=== PATIENT | male | born 1945 | race Caucasian/White ===

== ENCOUNTER 2016-06-08 11:02 | Inpatient (IN) | payer MEDICARE, BC ==
--- NOTE | ~2016-06-08 | OP ---
[facility] [address] [place]. [address] NAME: CHARLOTTE MONTGOMERY : 41 STATUS : DIS IN PAT#: [id number] AGE: 70 ADM/REG DATE : 06/09/16 MR#: [id number] REPORT SERV DATE: 06/14/16 DICTATED BY: LEIF FUNES DATE: 06/14/16 REPORT STATUS : Draft TRANSCRIBED BY: MODL DATE: 06/14/16 DATE OF PROCEDURE: 06/12/2016 PREOPERATIVE DIAGNOSES: 1. 5.5 cm abdominal aortic aneurysm. 2. Chronic kidney disease. 3. Congestive heart failure. POSTOPERATIVE DIAGNOSES: 1. 5.5 cm abdominal aortic aneurysm. 2. Chronic kidney disease. 3. Congestive heart failure. PROCEDURE: 1. Ultrasound-guided percutaneous access of bilateral common femoral arteries. 2. Abdominal aortogram. 3. Coil embolization of left internal iliac artery. 4. Endovascular abdominal aortic aneurysm repair (Medtronic Endurant 28 x 16 x 166 main body device from the right and 16 x 10 x 156 left iliac limb). SURGEON: Leif Funes M.D. TELE TECH: Sincere. ANESTHESIA: General endotracheal. ESTIMATED BLOOD LOSS: 50 mL. CONTRAST: 37 mL. COMPLICATIONS: None. INDICATIONS: Mr. Montgomery is a pleasant 70-year-old man with the above-listed comorbidities. He has a newly diagnosed abdominal aortic aneurysm. He is recommended for endovascular repair. On preoperative imaging, it was felt we would need to cover the left internal iliac artery to achieve aneurysm exclusion. Therefore, he is recommended for concomitant embolization of internal iliac origin. DETAILS OF PROCEDURE: After informed consent was obtained, the patient was brought to the endovascular suite and placed in supine position. After administration of anesthesia, he was intubated. He was prepped and draped in usual sterile fashion. A time-out was performed. I commenced the procedure with ultrasound-guided percutaneous access of the right common femoral artery. A permanent image of the artery documenting patency was saved and stored in the patient's chart. I accessed with a micropuncture needle and passed a micropuncture wire confirmed intra-arterial under fluoroscopy. We systemically heparinized. I then placed a Bentson wire. I then pre-dilated with a 6-Kyrgyz sheath. I made an [facility] [place] [address] [facility] [place]. [address] NAME: CHARLOTTE MONTGOMERY : 41 STATUS : DIS IN PAT#: [id number] AGE: 70 ADM/REG DATE : 06/09/16 MR#: [id number] REPORT SERV DATE: 06/14/16 DICTATED BY: LEIF FUNES DATE: 06/14/16 REPORT STATUS : Draft TRANSCRIBED BY: TOMASA DATE: 06/14/16 incision overlying the puncture site down to the common femoral artery. I then placed two ProGlide closure devices in the Preclose technique. Same procedure was undertaken in the left common femoral artery. Again the Bentson wire was placed in two ProGlide closure devices deployed in the Preclose technique after incision was made overlying the access site down to the common femoral artery. After that, 11-Kyrgyz sheaths were placed bilaterally. After that, I used a Hurdland flush catheter and a Glidewire to select from the right femoral access over to the left internal iliac artery. I advanced the wire and a jas 2 in the left internal iliac artery. We then embolized the left internal iliac artery origin without difficulty. After that, we pulled back in to the right common iliac artery. I advanced the wire back into the aorta. I exchanged for an Amplatz wire on the right. I advanced a Medtronic Endurant 28 x 16 x 166 main body device from the right over the Amplatz wire. Hurdland flush catheter was advanced from the left. We performed magnified views of the proximal aorta demonstrating the renal arteries. Aneurysm is visualized. We then deployed the main body device just below the lowest renal artery which is on the left. We deployed down to the contralateral gate. We then released the suprarenal fixation. After that, we advanced a Marker flush catheter from the left. Contrast injection was performed through the left femoral sheath. Based on this measurements, we selected a 16 x 10 x 156 left iliac limb, this was deployed without difficulty, just beyond the left internal iliac artery origin. We then completed the delivery of the main body on the right. Delivery systems were removed. Sheaths were replaced. We used a Reliant balloon to balloon the proximal and distal fixation sites as well as stent overlap sites. Repeat aortogram showed perfect positioning of the aortic stent graft with no impingement of flow in the bilateral renal arteries to the right internal iliac artery. Left internal iliac artery successfully embolized. There is no significant endoleak. Wires and catheters removed. Each access site was closed successfully with a ProGlide closure device in a Preclose technique. The incisions were closed with 4-0 Monocryl and Dermabond. The patient tolerated the procedure well without complications. I was present and participated in entire case as dictated. NANCY/TOMASA Leif Funes M.D. / [id number] CC: Yudith López CHARLES E JR
--- NOTE | ~2016-06-08 | DS ---
Discharge Summary [facility] [address] [place]. [address] NAME: CHARLOTTE CUNHA : 41 STATUS : DIS IN PAT#: [id number] AGE: 70 ADM/REG DATE : 06/09/16 MR#: [id number] REPORT SERV DATE: 06/20/16 DICTATED BY: KALLIE WORRELL DATE: 06/19/16 REPORT STATUS : Draft TRANSCRIBED BY: TOMASA DATE: 06/19/16 Data Collection from hospitalization DISCHARGE DIAGNOSES: 1. Ventricular tachycardia status post ICD at PRERNA. 2. Coronary artery disease. 3. Ischemic cardiomyopathy. 4. Hyperlipidemia. 5. Chronic kidney disease. 6. Former tobacco use. CONSULTATIONS: Dr. Lester Hightower. Dr. Mil Funes. PROCEDURES: 1. COUNTER CUTTER-D generator explantation with risk implantation of COUNTER CUTTER-D, 06/08/2016. 2. Ultrasound-guided percutaneous access of bilateral common femoral arteries, abdominal aortogram, coil embolization of left internal iliac artery, endovascular abdominal aortic aneurysm repair (Medtronic Endurant 28 x 16 x 166 main body device from the right and 16 x 10 x 156 left iliac limb), 06/12/2016. 3. Duplex renal arterial venous study, 06/08/2016. 4. CT scan of the abdomen and pelvis without contrast on 06/09/2016. DISCHARGE MEDICATIONS: Aspirin 81 mg daily, Lipitor as instructed, Coreg 6.25 mg twice a day, Lasix 40 mg daily, multivitamins with minerals one tablet daily, hydrocodone 5/325 one to two tablets every four hours as needed for pain. CONDITION ON DISCHARGE: Stable. DISPOSITION: The patient was discharged home on a low-sodium, low-cholesterol, cardiac diet with activities as instructed. He would follow up with Brittnee Frank, 07/12/2016. He would follow up with PRIMING MACHINE OPERATOR, Carlene Valencia, 06/27/2016. He would follow up with Dr. Kallie Worrell two weeks following discharge. He would follow up with me as instructed. HOSPITAL COURSE: This is a 70-year-old man, who had reached PRERNA on his generator. He has underlying ischemic cardiomyopathy with biventricular ICD support. He had reached PRERNA on the generator and we made plans to replace the generator. He had also developed worsening renal function. We would check renal artery Dopplers to evaluate him for any obstruction. He was admitted to the hospital at this time for further evaluation and treatment. Upon admission, he underwent successful ICD replacement. He tolerated this well and there were no complication. Renal color flow study and vascular ultrasound of the kidneys were performed. There was no evidence of renal artery stenosis; however, there was distal aortic aneurysm detected. On 06/09/2016, the patient was seen by Dr. Mil Funes, regarding the newly diagnosed abdominal aortic aneurysm. Creatinine level was 2.3. A CT scan of the abdomen and pelvis without contrast showed a 5.3 cm inferior abdominal aortic aneurysm. There was a small volume of ascites. It was suspected that the intraperitoneal catheter or wire was below the hepatic tip. Creatinine level was 2.39. Dobutrex was started. On 06/10/2016, he had no new complaints. He had no focal deficits. He had no edema. Discharge Summary [address] [address] NAME: CHARLOTTE CUNHA : 41 STATUS : DIS IN PAT#: [id number] AGE: 70 ADM/REG DATE : 06/09/16 MR#: [id number] REPORT SERV DATE: 06/20/16 DICTATED BY: KALLIE WORRELL DATE: 06/19/16 REPORT STATUS : Draft TRANSCRIBED BY: MODLigia DATE: 06/19/16 Creatinine level was 2.20. Dobutrex was continued. His chronic renal insufficiency was felt due to ischemic cardiomyopathy and Entresto use. It was felt that the patient would need to undergo EVAR. The patient was seen by Dr. Lester Hightower. The patient was noted to have a decreased ejection fraction and worsening renal insufficiency. The patient was advised of his risk for sustaining an acute kidney injury on chronic kidney disease in light of his planned surgical intervention. Void residual was going to be checked and a Brown catheter would be placed if needed. We would avoid KAT inhibitors as well as ARBs, which the patient was currently not on. He was recently on Entresto, which may have certainly worsened his renal dysfunction as he had shown some improvement across May on his baseline creatinine. The patient said that on January 2016, he was around 1.9 and our hopes were that we could return him to near that previous 1.9 to 2.0 baseline. Urine studies: Urine creatinine, urine sodium, urine urea, and urinalysis would be obtained. We would not modify diuretic pattern as the patient has severely reduced ejection fraction with implementation of his device, which may improve perfusion and hopefully provide some assistance in improving his renal dysfunction. Postvoid residual was 100 mL via bladder scan. On 06/11/2016, he had trace left basilar rales. Creatinine level was 1.92. Plans were being made to proceed with surgical intervention the next day. The patient said he was not interested in hemodialysis. Lasix was going to be continued. He was taken to the endovascular suite, where he underwent the above-mentioned procedure by Dr. Mil uFnes. He tolerated this well and there were no complications. He also underwent hematoma pocket evacuation. Discharge planning was performed. He had some mild pain at the pacemaker site. On 06/13/2016, IV fluids and Brown catheter were discontinued. Lasix has been resumed. He had stable renal function. Dobutrex was discontinued. He was alert and cooperative. He had no edema. Creatinine level was 1.65. Discharge instructions were given. Due to his improved and stable condition, he was discharged home with the above-stated instructions. Information collected by: Bhumi Kennedy I submit the above information as my discharge summary. TG/MODL Kallie Worrell M.D. / [id number] CC: Yudith López CHARLES E JR Mark W Fugate, M.D. Hans E Yehnert, MD
--- NOTE | ~2016-06-08 | CN ---
Consultation Report [facility] [address] [place]. [address] NAME: CHARLOTTE CUNHA : 41 STATUS : ADM IN PAT#: [id number] AGE: 70 ADM/REG DATE : 06/09/16 MR#: [id number] REPORT SERV DATE: 06/10/16 DICTATED BY: SARA POWELL DATE: 06/10/16 REPORT STATUS : Draft TRANSCRIBED BY: MODL DATE: 06/10/16 CONSULTATION DATE OF CONSULTATION: 06/10/2016 HISTORY OF PRESENT ILLNESS: This is a fairly pleasant 70-year-old male patient, who underwent recent follow up with his clipper machine. He was noted to have a decreased ejection fraction and worsening renal insufficiency. He was placed inpatient at [facility]. He was admitted in favor of placement of a pacemaker and further supportive workup. He has recently been on Entresto and states that his creatinine was noted to be at approximately 1.9 by his recollection in around January of this year. At some point, he was advised to remove the medication and had self-removed prior to that. By his recall, his creatinine peak had been at approximately 2.49. He has had a long cardiac history and has required previous interventions, including a valve replacement and ablation and is known to have an ejection fraction around 15%. He is awake and alert this afternoon. His daughters are at bedside during evaluation and participate fully in HPI as well as medical history. We are asked for consultation as this patient has had an incidental finding of an aortic aneurysm and will undergo surgical repair on Sunday and shows a creatinine at 2.22. PAST MEDICAL HISTORY: Positive for coronary artery disease; chronic left bundle-branch block; ischemic cardiomyopathy with kade ejection fraction at 15%; status post upgrade of biventricular ICD on 07/24/2010, [employer] Consult[employer] SUPERVISOR ADVERTISING [employer] CLERKS-D by Dr. Worrell; hyperlipidemia; possible aortic stenosis identified in last [facility] note with recent valvular area of 1.1 sq cm, status post AVR; ventricular tachycardia, status post ablation 2015; history of CABG; history of aortic valve replacement; hyperlipidemia; and some level of chronic kidney disease with last available creatinine here prior to this admission in 2011, identifying creatinine at 1.68 with the patient stating his most recent creatinine in January of this previous calender year while hospitalized inpatient. REVIEW OF SYSTEMS: Completed, please see HPI for pertinent details. ALLERGIES: HE LISTS ALLERGIES TO SPIRONOLACTONE. ACTIVE MEDICATIONS: ASA 81 mg daily, Coreg 6.25 mg p.o. b.i.d., Lasix 40 mg daily, multivitamin one tab p.o. daily. SOCIAL HISTORY: No ETOH. No illicit drugs. No tobacco. He has quit smoking approximately 20 years ago, however, was quite an aggressive smoker prior, smoking approximately two packs a day since age 13 according to his recall. PHYSICAL EXAMINATION: VITAL SIGNS: Blood pressure is 103/63, temperature at 97.5, respiratory rate is 16, heart rate is 65 beats per minute and regular. Consultation Report [address] [place]. [address] NAME: CHARLOTTE CUNHA : 41 STATUS : ADM IN PAT#: [id number] AGE: 70 ADM/REG DATE : 06/09/16 MR#: [id number] REPORT SERV DATE: 06/10/16 DICTATED BY: SARA POWELL DATE: 06/10/16 REPORT STATUS : Draft TRANSCRIBED BY: TOMASA DATE: 06/10/16 GENERAL: He is awake, alert and oriented x3, in no acute distress. He is status post pacemaker and has a bandage to his left shoulder area. HEENT: Normocephalic and atraumatic. Normal ocular movements. No scleral icterus or conjunctival pallor is appreciated. NECK: Supple without thyromegaly. No JVD. No mass. CHEST: Shows positive S1 and S2 with a paced rhythm. No rubs. No gallops. LUNGS: Diminished, but essentially clear to auscultation throughout with normal expansion and effort bilaterally. GI: Shows positive bowel sounds in all four quadrants. No appreciable mass. No tenderness. EXTREMITIES: Show positive pulses. No clubbing, cyanosis, or edema. NEUROLOGIC: He appears to be grossly intact and nonfocal. SKIN: Warm, dry, and intact to visualized surfaces. No rash, lesions, or ecchymosis. DATA: Pertinent laboratories and imaging to this evaluation: Most recent electrolyte profile: Sodium 141, potassium 3.9, chloride 108, CO2 of 22, BUN 38, creatinine 2.22, reflected GFR 29 mL/minute, glucose of 142, calcium 8.6. CBC: White blood cell count of 5.6, RBC 3.83, hemoglobin 11.9, hematocrit 36.4, platelets at 90. CT of the abdomen and pelvis without contrast identifies a 5.3 cm inferior abdominal aortic aneurysm with small volume of ascites, suspect intraperitoneal catheter or wire below hepatic . Bladder wall is distended, measuring 12.7 x 7.4 x 10.3 with an approximate value of 480 mL. Prostate and seminal vesicles are prominent. No mass or pelvic adenopathy is found. Extensive calcification of the abdominal aorta with large aneurysm as listed above. Gallbladder fossa, the liver, spleen, pancreas, adrenal glands, and kidneys are normal based off this noncontrasted examination. Renal ultrasound completed on 06/09, no evidence of renal artery stenosis; however, distal aortic aneurysm is noted, measuring on that examination at 5.0 x 5.4. IMPRESSION AND PLAN: Likely chronic kidney disease stage 3, baseline creatinine somewhere around 2.0 simi with previous creatinine in 2011 noted at 1.68 in 07/2011, on evaluation here on 05/26 at 2.49, then on 05/31 at 2.47, de-escalating 2.20, and now at 2.2 with no evidence of renal artery stenosis on evaluation and possible urinary retention with noted aortic aneurysm with surgical repair planned on Sunday. The patient is advised of his risk for sustaining an acute kidney injury on chronic kidney disease in light of planned surgical intervention. He and his family understand the risk and are allowed to ask questions and are fully informed during this evaluation. They will continue to discuss planned surgical intervention and further discuss the actual intervention itself with Vascular Services if they have further questions. For now, given his shown bladder volume on his imaging, we will check postvoid residual and place Brown catheter if needed. Avoid KAT inhibitors as well as ARBs, which the patient is currently not on. He was recently on Entresto, which may have certainly worsened his renal dysfunction as he has shown some improvement across May on his baseline creatinine. The patient states that in 01/2016, he was around 1.9, and our hopes are that we can return him to near that previous 1.9 to 2.0 baseline. We will also check urine studies, urine creatinine, urine sodium, urine urea, urinalysis and place on strict I's and O's. We will not modify diuretic pattern as the Consultation Report [place] [id number] [place]. [id number] NAME: CHARLOTTE CUNHA : 41 STATUS : ADM IN PAT#: [id number] AGE: 70 ADM/REG DATE : 06/09/16 MR#: [id number] REPORT SERV DATE: 06/10/16 DICTATED BY: SARA POWELL DATE: 06/10/16 REPORT STATUS : Draft TRANSCRIBED BY: MODL DATE: 06/10/16 patient has a severely reduced ejection fraction with implementation of his device as above may improve perfusion and hopefully provide some assistance in improving his renal dysfunction. Further modification of treatment plan may be made based on clinical presentation of the patient, laboratory results, and further consultation with Renal attending. We appreciate consultation, we are glad to follow. DICTATED BY: Brijesh Medeiros NP JR/TOMASA Sara Powell MD / [id number] CC: Yudith López Charles E Jr
[~2016-06-08 11:02] MED LIST: ASAB PO; CALTRA600D PO; COREG6 PO; GLUCCHONDR PO; L40 PO; LAN125 PO; MULTIVIT/MIN PO; PRIN20 PO; ZOCOR20 PO
[2016-06-08 11:48] LABS: BASOPHILS 0.4 %; BASOPHILS ABSOLUTE 0.02 10/3/uL (0.0-0.16); EOSINOPHILS 4.6 %; EOSINOPHILS ABSOLUTE 0.22 10/3/uL (0.0-0.53); HEMATOCRIT 36.6 % (40.0-51.0); HEMOGLOBIN 11.5 g/dL (13.6-17.8); IMMATURE GRANULOCYTES 0.2 %; IMMATURE GRANULOCYTES ABSOLUTE 0.01 10/3/uL (0.0-0.11); LYMPHOCYTES 20.7 %; MEAN CORPUS HGB CONC 31.4 g/dL (32.0-36.0); MEAN CORPUSCULAR HEMOGLOB 29.4 pg (26.0-34.0); MEAN CORPUSCULAR VOLUME 93.6 fL (80-100); MEAN PLATELET VOLUME 10.9 fL (9.2-13.0); MONOCYTES 11.8 %; MONOCYTES ABSOLUTE 0.57 10/3/uL (0.21-1.20); NEUTROPHILS 62.3 %; NEUTROPHILS ABSOLUTE 3.01 10/3/uL (2.02-8.40); PLATELET COUNT 107 10/3/uL (150-400); RBC DISTRIBUTION WIDTH 15.8 % (12.0-16.0); RED CELL COUNT 3.91 10/6/uL (4.7-6.1); WHITE BLOOD CELLS 4.8 10/3/uL (4.5-10.5)
[2016-06-08 11:50] LABS: MANUAL DIFF NO %
[2016-06-08 12:02] LABS: CALCIUM, SERUM 9.2 MG/DL (8.5-10.4); CHLORIDE, SERUM 107 MMOL/L (96-112); CO2 (CARBON DIOXIDE) 26 MMOL/L (24-34); CREATININE 2.39 MG/DL (0.70-1.30); GFR AFRICAN AMERICAN 30 ML/MIN (>=60); GFR NON AFRICAN AMERICAN 26 ML/MIN (>=60); GLUCOSE, SERUM 118 MG/DL (60-99); POTASSIUM, SERUM 4.3 MMOL/L (3.5-5.3); SODIUM, SERUM 143 MMOL/L (135-148)
[2016-06-08 12:03] LABS: BUN (BLOOD UREA NITROGEN) 41 MG/DL (6-23)
[2016-06-09 12:01] LABS: CALCIUM, SERUM 8.8 MG/DL (8.5-10.4); CHLORIDE, SERUM 107 MMOL/L (96-112); CO2 (CARBON DIOXIDE) 23 MMOL/L (24-34); GFR AFRICAN AMERICAN 33 ML/MIN (>=60); GFR NON AFRICAN AMERICAN 29 ML/MIN (>=60); GLUCOSE, SERUM 96 MG/DL (60-99); POTASSIUM, SERUM 4.3 MMOL/L (3.5-5.3); SODIUM, SERUM 142 MMOL/L (135-148)
[2016-06-09 12:02] LABS: BUN (BLOOD UREA NITROGEN) 37 MG/DL (6-23)
[2016-06-10 08:13] LABS: BASOPHILS 0.2 %; BASOPHILS ABSOLUTE 0.01 10/3/uL (0.0-0.16); EOSINOPHILS ABSOLUTE 0.17 10/3/uL (0.0-0.53); HEMATOCRIT 36.4 % (40.0-51.0); HEMOGLOBIN 11.9 g/dL (13.6-17.8); IMMATURE GRANULOCYTES 0.2 %; IMMATURE GRANULOCYTES ABSOLUTE 0.01 10/3/uL (0.0-0.11); LYMPHOCYTES 16.5 %; LYMPHOCYTES ABSOLUTE 0.92 10/3/uL (0.67-4.30); MEAN CORPUS HGB CONC 32.7 g/dL (32.0-36.0); MEAN CORPUSCULAR HEMOGLOB 31.1 pg (26.0-34.0); MEAN PLATELET VOLUME 11.7 fL (9.2-13.0); MONOCYTES 11.6 %; MONOCYTES ABSOLUTE 0.65 10/3/uL (0.21-1.20); NEUTROPHILS 68.5 %; NEUTROPHILS ABSOLUTE 3.82 10/3/uL (2.02-8.40); PLATELET COUNT 90 10/3/uL (150-400); RBC DISTRIBUTION WIDTH 15.6 % (12.0-16.0); RED CELL COUNT 3.83 10/6/uL (4.7-6.1); WHITE BLOOD CELLS 5.6 10/3/uL (4.5-10.5)
[2016-06-10 08:17] LABS: MANUAL DIFF NO %
[2016-06-10 08:28] LABS: BUN (BLOOD UREA NITROGEN) 38 MG/DL (6-23); CALCIUM, SERUM 8.6 MG/DL (8.5-10.4); CHLORIDE, SERUM 108 MMOL/L (96-112); CO2 (CARBON DIOXIDE) 22 MMOL/L (24-34); CREATININE 2.22 MG/DL (0.70-1.30); GFR AFRICAN AMERICAN 33 ML/MIN (>=60); GFR NON AFRICAN AMERICAN 29 ML/MIN (>=60); POTASSIUM, SERUM 3.9 MMOL/L (3.5-5.3); SODIUM, SERUM 141 MMOL/L (135-148)
[2016-06-10 08:29] LABS: GLUCOSE, SERUM 142 MG/DL (60-99)
[2016-06-10 22:11] LABS: ASCORBIC ACID (UR NOT ORDER) NEG (NEG); BILIRUBIN, URINE NEGATIVE (NEG); KETONE, URINE NEGATIVE (NEG); LEUKOCYTE ESTERASE(NOT OR NEG (NEG); WBC (NOT ORDERED) (RFLEX) < 1 (0-5)
[2016-06-10 22:44] LABS: CREATININE, URINE 63.1 MG/DL
[2016-06-11 07:16] LABS: BASOPHILS 0.4 %; BASOPHILS ABSOLUTE 0.02 10/3/uL (0.0-0.16); EOSINOPHILS 4.9 %; EOSINOPHILS ABSOLUTE 0.26 10/3/uL (0.0-0.53); HEMATOCRIT 34.7 % (40.0-51.0); HEMOGLOBIN 11.2 g/dL (13.6-17.8); IMMATURE GRANULOCYTES 0.2 %; IMMATURE GRANULOCYTES ABSOLUTE 0.01 10/3/uL (0.0-0.11); LYMPHOCYTES 17.1 %; LYMPHOCYTES ABSOLUTE 0.91 10/3/uL (0.67-4.30); MEAN CORPUS HGB CONC 32.3 g/dL (32.0-36.0); MEAN CORPUSCULAR HEMOGLOB 30.6 pg (26.0-34.0); MEAN CORPUSCULAR VOLUME 94.8 fL (80-100); MEAN PLATELET VOLUME 10.7 fL (9.2-13.0); MONOCYTES 14.9 %; MONOCYTES ABSOLUTE 0.79 10/3/uL (0.21-1.20); NEUTROPHILS 62.5 %; NEUTROPHILS ABSOLUTE 3.32 10/3/uL (2.02-8.40); PLATELET COUNT 87 10/3/uL (150-400); RBC DISTRIBUTION WIDTH 15.7 % (12.0-16.0); RED CELL COUNT 3.66 10/6/uL (4.7-6.1); WHITE BLOOD CELLS 5.3 10/3/uL (4.5-10.5)
[2016-06-11 07:17] LABS: MANUAL DIFF NO %
[2016-06-11 07:31] LABS: ALBUMIN 3.4 G/DL (3.5-5.0); BUN (BLOOD UREA NITROGEN) 36 MG/DL (6-23); CALCIUM, SERUM 8.4 MG/DL (8.5-10.4); CHLORIDE, SERUM 107 MMOL/L (96-112); CO2 (CARBON DIOXIDE) 22 MMOL/L (24-34); CREATININE 1.92 MG/DL (0.70-1.30); GFR AFRICAN AMERICAN 39 ML/MIN (>=60); GFR NON AFRICAN AMERICAN 34 ML/MIN (>=60); GLUCOSE, SERUM 163 MG/DL (60-99); PHOSPHORUS, SERUM 3.3 MG/DL (2.5-4.5); POTASSIUM, SERUM 3.8 MMOL/L (3.5-5.3); SODIUM, SERUM 141 MMOL/L (135-148)
[2016-06-12 06:33] LABS: ALBUMIN 3.5 G/DL (3.5-5.0); BUN (BLOOD UREA NITROGEN) 37 MG/DL (6-23); CALCIUM, SERUM 8.5 MG/DL (8.5-10.4); CHLORIDE, SERUM 107 MMOL/L (96-112); CO2 (CARBON DIOXIDE) 25 MMOL/L (24-34); CREATININE 1.96 MG/DL (0.70-1.30); GFR AFRICAN AMERICAN 38 ML/MIN (>=60); GFR NON AFRICAN AMERICAN 33 ML/MIN (>=60); PHOSPHORUS, SERUM 3.4 MG/DL (2.5-4.5); POTASSIUM, SERUM 4.1 MMOL/L (3.5-5.3); SODIUM, SERUM 142 MMOL/L (135-148)
[2016-06-12 06:34] LABS: GLUCOSE, SERUM 125 MG/DL (60-99)
[2016-06-12 19:08] LABS: BASOPHILS 0.2 %; BASOPHILS ABSOLUTE 0.01 10/3/uL (0.0-0.16); EOSINOPHILS ABSOLUTE 0.24 10/3/uL (0.0-0.53); HEMOGLOBIN 9.7 g/dL (13.6-17.8); IMMATURE GRANULOCYTES 0.7 %; IMMATURE GRANULOCYTES ABSOLUTE 0.03 10/3/uL (0.0-0.11); LYMPHOCYTES 20.7 %; LYMPHOCYTES ABSOLUTE 0.83 10/3/uL (0.67-4.30); MEAN CORPUS HGB CONC 32.3 g/dL (32.0-36.0); MEAN CORPUSCULAR VOLUME 95.8 fL (80-100); MEAN PLATELET VOLUME 10.9 fL (9.2-13.0); MONOCYTES 5.2 %; MONOCYTES ABSOLUTE 0.21 10/3/uL (0.21-1.20); NEUTROPHILS 67.2 %; NEUTROPHILS ABSOLUTE 2.69 10/3/uL (2.02-8.40); PLATELET COUNT 87 10/3/uL (150-400); RBC DISTRIBUTION WIDTH 15.7 % (12.0-16.0); RED CELL COUNT 3.13 10/6/uL (4.7-6.1)
[2016-06-12 19:09] LABS: MANUAL DIFF NO %
[2016-06-12 19:28] LABS: ALBUMIN 3.1 G/DL (3.5-5.0); ALKALINE PHOSPHATASE 59 U/L (45-117); CALCIUM, SERUM 8.2 MG/DL (8.5-10.4); CHLORIDE, SERUM 109 MMOL/L (96-112); CO2 (CARBON DIOXIDE) 24 MMOL/L (24-34); CREATININE 1.78 MG/DL (0.70-1.30); GFR AFRICAN AMERICAN 43 ML/MIN (>=60); GFR NON AFRICAN AMERICAN 37 ML/MIN (>=60); GLUCOSE, SERUM 120 MG/DL (60-99); SGOT(AST) 12 U/L (5-40); SGPT(ALT) 12 U/L (5-65); SODIUM, SERUM 142 MMOL/L (135-148); TOTAL BILIRUBIN 1.4 MG/DL (0-1.2); TOTAL PROTEIN 6.1 G/DL (6.0-8.5)
[2016-06-12 19:32] LABS: BUN (BLOOD UREA NITROGEN) 33 MG/DL (6-23)
[2016-06-13 02:44] LABS: BASOPHILS 0.2 %; BASOPHILS ABSOLUTE 0.01 10/3/uL (0.0-0.16); EOSINOPHILS ABSOLUTE 0.13 10/3/uL (0.0-0.53); HEMOGLOBIN 9.7 g/dL (13.6-17.8); IMMATURE GRANULOCYTES 0.2 %; IMMATURE GRANULOCYTES ABSOLUTE 0.01 10/3/uL (0.0-0.11); LYMPHOCYTES ABSOLUTE 0.43 10/3/uL (0.67-4.30); MEAN CORPUS HGB CONC 32.3 g/dL (32.0-36.0); MEAN CORPUSCULAR HEMOGLOB 30.9 pg (26.0-34.0); MEAN CORPUSCULAR VOLUME 95.5 fL (80-100); MEAN PLATELET VOLUME 11.4 fL (9.2-13.0); MONOCYTES 9.3 %; NEUTROPHILS 77.3 %; NEUTROPHILS ABSOLUTE 3.31 10/3/uL (2.02-8.40); PLATELET COUNT 72 10/3/uL (150-400); RBC DISTRIBUTION WIDTH 15.5 % (12.0-16.0); RED CELL COUNT 3.14 10/6/uL (4.7-6.1); WHITE BLOOD CELLS 4.3 10/3/uL (4.5-10.5)
[2016-06-13 02:45] LABS: MANUAL DIFF NO %
[2016-06-13 02:56] LABS: ALBUMIN 3.3 G/DL (3.5-5.0); BUN (BLOOD UREA NITROGEN) 33 MG/DL (6-23); CALCIUM, SERUM 8.4 MG/DL (8.5-10.4); CHLORIDE, SERUM 110 MMOL/L (96-112); CO2 (CARBON DIOXIDE) 22 MMOL/L (24-34); CREATININE 1.65 MG/DL (0.70-1.30); GFR AFRICAN AMERICAN 47 ML/MIN (>=60); GFR NON AFRICAN AMERICAN 41 ML/MIN (>=60); GLUCOSE, SERUM 122 MG/DL (60-99); PHOSPHORUS, SERUM 3.4 MG/DL (2.5-4.5); POTASSIUM, SERUM 4.1 MMOL/L (3.5-5.3); SODIUM, SERUM 142 MMOL/L (135-148)
[2016-06-13 03:07] LABS: PLATELET ESTIMATE DEC (ADEQUATE); RBC MORPHOLOGY NORM (NORMAL)
[2016-06-13] MEDS ORDERED: LIPITOR40 (13:00)
== END 2016-06-13 16:00 | disposition home or self-care (01) | DRG 269 ==
LOC: CORLMH 11:02 → SSU1 11:13 → 6NO 06-10 12:08 → SDC/OF 06-12 18:45 → CVICU 06-12 19:20
PROVIDERS: Internal Medicine Clinical Cardiac Electrophysiology; Registered Nurse; Student in an Organized Health Care Education/Training Program; Surgery
DX: I71.4 Abdominal aortic aneurysm, without rupture (principal); I47.2 Ventricular tachycardia; N17.9 Acute kidney failure, unspecified; N18.4 Chronic kidney disease, stage 4 (severe); I50.9 Heart failure, unspecified; I44.7 Left bundle-branch block, unspecified; I25.5 Ischemic cardiomyopathy; I25.10 Atherosclerotic heart disease of native coronary artery without angina pectoris; Z95.810 Presence of automatic (implantable) cardiac defibrillator; E78.5 Hyperlipidemia, unspecified; Z95.5 Presence of coronary angioplasty implant and graft; Z95.2 Presence of prosthetic heart valve; Z88.8 Allergy status to other drugs, medicaments and biological substances; Z79.82 Long term (current) use of aspirin; Z79.899 Other long term (current) drug therapy; Z87.891 Personal history of nicotine dependence
CPT/HCPCS: 33264; 34802; 36200; 36246; 37242; 74176; 75952; 76937; 80048; 80053; 80069; 81001; 82570; 82962; 83735; 84300; 84540; 85025; 93005; 93975; A9270-GY; C1725; C1760; C1769; C1876; C1882; C1884; C1887; C1894; G0463; J0690; J2250; J2370; J2720; J3010; Q9966